=== PATIENT | male | born 1980 ===

== ENCOUNTER 2018-03-31 07:41 | Emergency (ER) | payer SELFPAY ==
[~2018-03-31] VITALS: Ht 170.2 cm; Wt 65.9 kg
[2018-03-31 07:44] VITALS: BP 120/83
== END 2018-03-31 08:40 | disposition left against medical advice (07) ==
LOC: EMS 07:42
DX: R51 Headache (principal); R07.9 Chest pain, unspecified; Z53.21 Procedure and treatment not carried out due to patient leaving prior to being seen by health care provider
CPT/HCPCS: 93005